=== PATIENT | female | born 1930 | race Two or more races ===

== ENCOUNTER 2017-03-20 08:20 | Emergency (ER) | payer OTHER ==
--- NOTE | 2017-03-20 08:36 | CPEKG ---
Heart Rate: 80 RR Interval: 750 P-R Interval: 148 QRSD Interval: 88 QT Interval: 400 QTC Interval: 462 P [place]: 47 QRS [place]: 31 T Wave [place]: 49 EKG Severity - ABNORMAL ECG - EKG Impression: SINUS RHYTHM EKG Impression: LEFT VENTRICULAR HYPERTROPHY Electronically Signed By: Carlos A Wyman 20-Mar-2017 10:15:13
[2017-03-20 08:37] VITALS: RESP 18; TEMP 98
[2017-03-20] MEDS ORDERED: MECLIZINE HCL 25 MG TAB PO ONE (08:47)
[2017-03-20] MEDS ORDERED: ONDANSETRON 4 MG/2 ML VIAL IVP ONE (08:48)
[2017-03-20 09:14] LABS: % IMMATURE GRANULYOCYTES 0.3 % (0.0-1.1); ABSOLUTE IMMATURE GRANULOCYTES 0.02 10^3/uL (0.00-0.10); ADD DIFF? NO; ADD MORPH? NO; ADD SCAN? NO; ATYPICAL LYMPHOCYTE FLAG 0 (0-99); FRAGMENT RBC FLAG 0 (0-99); HEMATOCRIT 36.1 % (38.0-47.0); HEMOGLOBIN 12.1 g/dL (12.6-16.3); LEFT SHIFT FLG 0 (0-99); LIPEMIA HEMOLYSIS FLAG 80 (0-99); MEAN CELL HEMOGLOBIN 29.3 pg (27.9-34.1); MEAN CELL HEMOGLOBIN CONCENTR. 33.5 g/dL (32.4-36.7); MEAN CELL VOLUME 87.4 fL (81.5-99.8); MEAN PLATELET VOLUME 8.9 fL (8.7-11.7); PLATELET CLUMPS FLAG 0 (0-99); PLATELET COUNT 361 10^3/uL (150-400); RED BLOOD CELL COUNT 4.13 10^6/uL (4.18-5.33); RED CELL DISTRIBUTION WIDTH 13.5 % (11.5-15.2)
[2017-03-20 09:27] LABS: ANION GAP 15 mEq/L (8-16); CALCIUM 9.8 mg/dL (8.5-10.4); CARBON DIOXIDE 26 mEq/l (22-31); CHLORIDE 104 mEq/L (97-110); CREATININE 0.7 mg/dL (0.6-1.0); GLOMERULAR FILTRATION RATE > 60; GLUCOSE 97 mg/dL (70-100); POTASSIUM 3.7 mEq/L (3.5-5.2); SODIUM 145 mEq/L (134-144)
--- NOTE | 2017-03-20 10:13 | EDPHY ---
H & P Stated Complaint: c/o vertigo/nausea since saturday Time Seen by Provider: 03/20/17 08:28 HPI/ROS: This patient was brought in by private vehicle by her daughter for symptoms of vertigo and vomiting. She explains that she awakened on Saturday and felt that the room was spinning. This is accompanied by nausea and since then she has had spinning sensation that worsens with movement associated with nausea and vomiting. The patient is not sure that there is a direct correlation between the vomiting and the vertigo. The patient reports intermittent bilateral finger paresthesias in addition but has none currently. She has not had this symptom in the past. Other than the intermittent vomiting she has no other associated symptoms except some anxiety due to the symptoms. ROS: No fevers or chills recently. No significant fatigue. HEENT: No nasal congestion. She has chronic tinnitus unchanged. No ear pain. No sore throat. Pulmonary: She denies dyspnea. No coughing. Cardiovascular: No chest pain or heart palpitations GI: No abdominal pain. She did eat breakfast without emesis this morning. : No dysuria or other urinary symptoms except chronic mild urinary incontinence unchanged. Integumentary: No skin rash Endocrine: Denies any complaints HEENT: No pallor. Complete review of symptoms otherwise negative Source: Patient, Family (Patient's daughter is an RN who accompanies her and helps provide history.) Exam Limitations: No limitations - Personal History Current Tetanus Diphtheria and Acellular Pertussis (TDAP): Yes - Medical/Surgical History PMH: Thyroid surgery years ago Hypercholesterolemia Other PMH: ortho/thyroid/Hyst/ - Family History Significant Family History: No pertinent family hx - Social History Smoking Status: Former smoker Alcohol Use: Occasionally Drug Use: None Additional Social History: Patient is visiting from [place] since March 06. - Physical Exam Exam: Physical exam: Vital signs are normal General: Patient is in no acute distress. HEENT: Is no external evidence of trauma on exam. Eyes: Pupils are equal and reactive to light. Extraocular motions are intact. Optic fundi: Clear with no papilledema or hemorrhage. Nose atraumatic. Ears: Clear bilaterally with no hemotympanum. Oropharynx: No dental trauma or malocclusion. No intraoral lacerations. Eyes: Pupils are equal and reactive to light. Extraocular motions are intact. Optic fundi: Clear with no papilledema or hemorrhage. Lungs: Clear to auscultation bilaterally Neck: Supple no meningismus. Cardiac: Regular rate and rhythm no murmur gallop or rub. Abdomen: Soft nontender no organomegaly Neuro: The patient has increased vertiginous symptoms with head movement and slightly with extraocular motions. No nystagmus. GCS of 15. Cranial nerves II through XII intact. Cerebellar exam is normal as judged by symmetric rapid hand movements bilaterally (finger-nose). Heel to rivera also normal. No pronator drift. No sensory or motor deficits are appreciated. Initial differential diagnosis: Benign positional vertigo, metabolic disarray, cardiac dysrhythmia, based on exam doubt REGISTERED NURSE CARDIAC TELEMETRY lesion or central vertigo. Constitutional: Initial Vital Signs Temperature (C) 36.6 C 03/20/17 08:32 Heart Rate 80 03/20/17 08:32 Respiratory Rate 18 03/20/17 08:32 Blood Pressure 202/109 H 03/20/17 08:32 O2 Sat (%) 95 03/20/17 08:32 O2 Delivery Mode Room Air Allergies/Adverse Reactions: narcotic Allergy (Uncoded 03/20/17 08:32) Home Medications: Medication Instructions Recorded Lival[place] 03/20/17 Medical Decision Making - Diagnostics EKG Interpretation: 12 lead EKG indication dizziness performed at 8:33 a.m. reveals sinus rhythm at 80 Intervals: Normal throughout [place]: P of 47, QRS of 31, T 49degrees Overall assessment sinus rhythm with LVH by voltage criteria. For complete read please refer to trace master ED Course/Re-evaluation: IV, monitor, EKG shortly after arrival Meclizine p.o. and Zofran IV with improvement in her vertigo-pt. was able to ambulate thereafter without significant dizziness. Her nausea vomiting also resolved. Discussion: After workup, I appreciate no evidence of acute cardiopulmonary problem or metabolic disarray contributing to her dizziness. Findings are consistent with benign positional vertigo. Exam reveals no evidence of central vertigo/cerebellar problem. While the patient has hypertension, degree of hypertension diminished without intervention while here and she reports "white coat hypertension. Her LVH EKG suggests that she likely has essential hypertension. I do not think she has hypertensive encephalopathy given normal mental status and no focal findings. Given her current vertigo will hold on starting at BP med today but counseled close follow-up to consider this in her RN daughter will monitor her blood pressures at home. Counseled patient and her daughter regarding this. They are comfortable with plan to proceed home on meclizine, flonase and Zofran p.r.n. follow up with ENT for any ongoing symptoms. - Data Points Laboratory Results: Laboratory Results 03/20/17 09:10 03/20/17 09:10 03/20/17 03/20/17 09:10 09:10 WBC 7.75 10^3/uL 10^3/uL (3.80-9.50) RBC 4.13 10^6/uL L 10^6/uL (4.18-5.33) Hgb 12.1 g/dL L g/dL (12.6-16.3) Hct 36.1 % L % (38.0-47.0) MCV 87.4 fL fL (81.5-99.8) MCH 29.3 pg pg (27.9-34.1) MCHC 33.5 g/dL g/dL (32.4-36.7) RDW 13.5 % % (11.5-15.2) Plt Count 361 10^3/uL 10^3/uL (150-400) MPV 8.9 fL fL (8.7-11.7) Neut % (Auto) 73.2 % % (39.3-74.2) Lymph % (Auto) 19.1 % % (15.0-45.0) [place] % (Auto) 6.1 % % (4.5-13.0) Eos % (Auto) 0.8 % % (0.6-7.6) Baso % (Auto) 0.5 % % (0.3-1.7) Nucleat RBC Rel Count 0.0 % % (0.0-0.2) Absolute Neuts (auto) 5.68 10^3/uL 10^3/uL (1.70-6.50) Absolute Lymphs (auto) 1.48 10^3/uL 10^3/uL (1.00-3.00) Absolute Monos (auto) 0.47 10^3/uL 10^3/uL (0.30-0.80) Absolute Eos (auto) 0.06 10^3/uL 10^3/uL (0.03-0.40) Absolute Basos (auto) 0.04 10^3/uL 10^3/uL (0.02-0.10) Absolute Nucleated RBC 0.00 10^3/uL 10^3/uL (0-0.01) Immature Gran % 0.3 % % (0.0-1.1) Immature Gran # 0.02 10^3/uL 10^3/uL (0.00-0.10) Sodium 145 mEq/L H mEq/L (134-144) Potassium 3.7 mEq/L mEq/L (3.5-5.2) Chloride 104 mEq/L mEq/L (97-110) Carbon Dioxide 26 mEq/l mEq/l (22-31) Anion Gap 15 mEq/L mEq/L (8-16) BUN 15 mg/dL mg/dL (7-23) Creatinine 0.7 mg/dL mg/dL (0.6-1.0) Estimated GFR > 60 Glucose 97 mg/dL mg/dL (70-100) Calcium 9.8 mg/dL mg/dL (8.5-10.4) TSH Pending Medications Given: Discontinued Medications Meclizine HCl (Meclizine Hcl) 25 mg PO EDNOW ONE Stop: 03/20/17 08:48 Last Admin: 03/20/17 09:19 Dose: 25 mg Ondansetron HCl (Zofran) 4 mg IVP EDNOW ONE Stop: 03/20/17 08:49 Last Admin: 03/20/17 09:19 Dose: 4 mg Departure - Departure Disposition: Home, Routine, Self-Care Clinical Impression: LVH (left ventricular hypertrophy) Benign positional vertigo Qualifiers: Laterality: unspecified laterality Qualified Code(s): H81.10 - Benign paroxysmal vertigo, unspecified ear Vomiting Qualifiers: Vomiting type: unspecified Vomiting Intractability: non-intractable Nausea presence: with nausea Qualified Code(s): R11.2 - Nausea with vomiting, unspecified Hypertension Qualifiers: Hypertension type: essential hypertension Qualified Code(s): I10 - Essential ( primary) hypertension Condition: Good Instructions: Benign Paroxysmal Positional Vertigo (ED), Acute Nausea and Vomiting (ED), Hypertension (ED) Additional Instructions: Diagnoses: 1. Benign positional vertigo 2. Vomiting 3. Hypertension Plan: Flonase steroid nasal spray Humidifier Meclizine for vertigo if needed Zofran for nausea vomiting if needed Monitor blood pressure in consider starting antihypertensive in conjunction with a visit to Dr. maday dobbins or Dr. Payton nassar-primary care physicians. Follow up with Dr. Sher-Ear Nose Throat specialist if her vertigo persists despite the treatment plan beyond the next few days. Return for any significant worsening despite the treatment plan Referrals: NONE *PRIMARY CARE P,. [Primary Care Provider] - As per Instructions Aimee Sher MD [Medical Doctor] - As per Instructions EBER PALOMINO [Non Staff Provider ()] - As per Instructions Gautam Watts MD [Medical Doctor] - As per Instructions
[2017-03-20 11:05] VITALS: BP 144/74; PULSE 75; O2SAT 95
== END 2017-03-20 11:05 | disposition home or self-care (01) ==
LOC: CED 08:20
DX: H81.10 Benign paroxysmal vertigo, unspecified ear (principal); I51.7 Cardiomegaly; I10 Essential (primary) hypertension; Z87.891 Personal history of nicotine dependence
CPT/HCPCS: 80048-PO; 84443-PO; 85025-PO; 96374; J2405